=== PATIENT | male | born 1995 | race African-American/Black ===

== ENCOUNTER 2017-05-11 09:52 | Emergency (ER) | payer OTHER ==
[~2017-05-11] VITALS: Ht 170.2 cm; Wt 60.0 kg
[~2017-05-11 09:52] MED LIST: DELT1TAB PO; DOXY-278 PO
[2017-05-11] MEDS ORDERED: IBUP-1022 PO (10:18)
[2017-05-11] MEDS ORDERED: PERC5TAB12 PO (10:18)
[2017-05-11] MEDS ORDERED: NS 1,000 ML IV ONE (10:45)
[2017-05-11] MEDS ORDERED: ONDANSETRON 4MG/2ML VIAL (J2405) IV ONE (10:45)
[2017-05-11] MEDS ORDERED: KETOROLAC 30 MG/ML VIAL (J1885) IV ONE (10:45)
[2017-05-11 11:09] LABS: BASO # 0.1 K/mm3 (0.0-0.2); BASO % 0.4 % (0.0-1.0); EOS # 0.2 K/mm3 (0.0-0.50); EOS % 1.3 % (0.0-3.0); LARGE UNSTAINED CELL # 0.3 K/mm3 (0.0-0.4); LYMPH # 1.9 K/mm3 (1.5-6.5); LYMPH % 9.5 % (24.0-44.0); MEAN CORPUSCULAR HEMOGLOBIN 28.6 pg (27.0-33.0); MEAN CORPUSCULAR HGB CONC 34.8 g/dl (32.0-36.5); MEAN CORPUSCULAR VOLUME 82.4 fl (80.0-96.0); MONO # 1.1 K/mm3 (0.0-0.8); MONO % 6.7 % (0.0-5.0); NEUTROPHILS # 13.4 K/mm3 (1.8-7.7); NEUTROPHILS % 80.1 % (36.0-66.0); PLATELET COUNT, AUTOMATED 279 k/mm3 (150-450); RED CELL DISTRIBUTION WIDTH 12.1 % (11.5-14.5); WHITE BLOOD COUNT 16.7 K/mm3 (4.0-10.0)
[2017-05-11 11:27] LABS: ERYTHROCYTE SEDIMENTATION RATE 20 mm/hr (0-15)
[2017-05-11 11:28] LABS: ALBUMIN 3.6 GM/DL (3.2-5.2); ALKALINE PHOSPHATASE 80 U/L (45-117); ALT/SGPT 15 U/L (12-78); ANION GAP 6 MEQ/L (8-16); AST/SGOT 12 U/L (15-37); BILIRUBIN,DIRECT 0.2 MG/DL (0.0-0.2); BILIRUBIN,TOTAL 1.5 MG/DL (0.2-1.0); BLOOD UREA NITROGEN 11 MG/DL (7-18); CARBON DIOXIDE LEVEL 29 MEQ/L (21-32); CHLORIDE LEVEL 104 MEQ/L (98-107); CREATININE FOR GFR 1.23 MG/DL (0.70-1.30); GLOMERULAR FILTRATION RATE > 60.0 (>60); GLUCOSE, FASTING 80 MG/DL (70-105); POTASSIUM SERUM 3.6 MEQ/L (3.5-5.1); SODIUM LEVEL 139 MEQ/L (136-145); TOTAL PROTEIN 7.6 GM/DL (6.4-8.2)
[2017-05-11] MEDS ORDERED: ZOFR4TAB3 PO (12:53)
[2017-05-11] MEDS ORDERED: NAPR500T PO (12:53)
[2017-05-11 13:03] VITALS: BP 104/51
== END 2017-05-11 13:04 | disposition home or self-care (01) ==
LOC: M ED 09:52
DX: B34.9 Viral infection, unspecified (principal)
CPT/HCPCS: 80048; 80076; 81001; 82550; 83690; 85025; 85652; 86140; 87086; 96361; 96374; 96375; 99283; J1885; J2405

== ENCOUNTER 2017-05-17 07:23 | Emergency (ER) | payer OTHER ==
[~2017-05-17] VITALS: Ht 170.2 cm; Wt 62.3 kg
[~2017-05-17 07:23] MED LIST changes: +IBUP-1022 PO; +NAPR500T PO; +PERC5TAB12 PO; +ZOFR4TAB3 PO
[2017-05-17] MEDS ORDERED: ALEV220C2 PO (07:46)
[2017-05-17] MEDS ORDERED: METOCLOPRAMIDE INJ 10MG/2ML VIAL (J2765) IV ONE (08:00)
[2017-05-17] MEDS ORDERED: NS 1,000 ML IV ONE (08:00)
[2017-05-17 08:15] LABS: BASO % 0.1 % (0.0-1.0); EOS # 0.1 K/mm3 (0.0-0.50); EOS % 0.8 % (0.0-3.0); LARGE UNSTAINED CELL # 0.1 K/mm3 (0.0-0.4); LARGE UNSTAINED CELL % 0.7 % (0.0-4.0); LYMPH # 0.7 K/mm3 (1.5-6.5); LYMPH % 3.8 % (24.0-44.0); MEAN CORPUSCULAR HEMOGLOBIN 28.5 pg (27.0-33.0); MEAN CORPUSCULAR HGB CONC 34.2 g/dl (32.0-36.5); MEAN CORPUSCULAR VOLUME 83.6 fl (80.0-96.0); MONO # 0.8 K/mm3 (0.0-0.8); NEUTROPHILS % 89.6 % (36.0-66.0); PLATELET COUNT, AUTOMATED 269 k/mm3 (150-450); RED CELL DISTRIBUTION WIDTH 12.2 % (11.5-14.5); WHITE BLOOD COUNT 15.6 K/mm3 (4.0-10.0)
[2017-05-17 08:34] LABS: ANION GAP 7 MEQ/L (8-16); BLOOD UREA NITROGEN 12 MG/DL (7-18); CALCIUM LEVEL 8.7 MG/DL (8.5-10.1); CARBON DIOXIDE LEVEL 25 MEQ/L (21-32); CHLORIDE LEVEL 102 MEQ/L (98-107); CREATININE FOR GFR 1.14 MG/DL (0.70-1.30); GLOMERULAR FILTRATION RATE > 60.0 (>60); GLUCOSE, FASTING 93 MG/DL (70-105); POTASSIUM SERUM 3.4 MEQ/L (3.5-5.1); SODIUM LEVEL 134 MEQ/L (136-145)
[2017-05-17] MEDS ORDERED: KETOROLAC 30 MG/ML VIAL (J1885) IV ONE (09:00)
--- NOTE | 2017-05-17 09:03 | REP ---
CT BRAIN WITHOUT IV CONTRAST: CT brain is performed without IV contrast. Ventricles are normal in size and position. There is no midline shift. No abnormal densities are seen. Basurto-white differentiation is well maintained. There is no acute hemorrhage. There is no extra-axial fluid collection. Bone window examination is unremarkable. Visualized paranasal sinuses are clear. IMPRESSION: Negative noncontrast CT brain. Signed by Judd Basurto MD 05/18/2017 05:48 P
[2017-05-17 09:10] LABS: ERYTHROCYTE SEDIMENTATION RATE 15 mm/hr (0-15)
[2017-05-17] MEDS ORDERED: ZOFR4TAB3 PO (10:47)
[2017-05-17 10:54] VITALS: BP 111/50
== END 2017-05-17 10:58 | disposition home or self-care (01) ==
LOC: M ED 07:23
DX: B34.9 Viral infection, unspecified (principal); R51 Headache; G56.01 Carpal tunnel syndrome, right upper limb
CPT/HCPCS: 70450; 80048; 85025; 85652; 86140; 87880; 96374; 96375; 99284; J1885; J2765

== ENCOUNTER 2019-07-12 17:52 | Emergency (ER) | payer OTHER ==
[~2019-07-12] VITALS: Ht 170.2 cm; Wt 57.3 kg
[2019-07-12 17:52] VITALS: BP 146/80
[~2019-07-12 17:52] MED LIST changes: +ALEV220C2 PO; -DOXY-278 PO; +DOXY-350 PO; +NAPR-837 PO; -NAPR500T PO; +ZOFR4TAB14 PO; -ZOFR4TAB3 PO
[2019-07-12 20:14] LABS: CHLAMYDIA DNA AMPLIFICATION NEGATIVE (NEGATIVE); GC DNA AMPLIFICATION POSITIVE (NEGATIVE)
[2019-07-12] MEDS ORDERED: AZITHROMYCIN 250 MG TAB PO ONE (20:30)
[2019-07-12] MEDS ORDERED: LIDOCAINE 1% SDV 5 ML VIAL DILUENT ONE (20:30)
[2019-07-12] MEDS ORDERED: cefTRIAXone SOD 250 MG VIAL (J0696) IM ONE (20:30)
== END 2019-07-12 20:42 | disposition home or self-care (01) ==
LOC: M ED 17:52
DX: Z20.2 Contact with and (suspected) exposure to infections with a predominantly sexual mode of transmission (principal); A54.09 Other gonococcal infection of lower genitourinary tract
CPT/HCPCS: 87661; 96372; 99283; J0696